=== PATIENT | female | born 1990 | race Caucasian/White ===

== ENCOUNTER 2021-04-25 17:22 | Emergency (ER) | payer OTHER, SELFPAY ==
[2021-04-25 17:33] VITALS: BP 127/71; PULSE 67; RESP 16; TEMP 36.4; O2SAT 99; BMI 29.5
--- NOTE | 2021-04-25 17:49 | DI.US.S_ITS ---
PROCEDURE: US PELVIC COMPLETE INDICATIONS: miscarriage TECHNIQUE: Real-time scanning was performed of the pelvic organs, with image documentation. Additional endovaginal scanning was necessary due to incomplete visualization of the adnexal and endometrial structures by transabdominal scanning. COMPARISON: None. FINDINGS: Uterus: Uterus is anteverted and measures approximately 11.1 x 5.6 x 6.9 cm. The endometrium measures 1.8 cm in combined thickness. There are heterogeneous hypoechoic filling defects within the lower uterine segment. No associated internal vascularity on color Doppler interrogation. Ovaries: The ovaries were not visualized. Other: No pathologic free abdominal or pelvic fluid. IMPRESSION: 1. Heterogeneous filling defects within the uterus predominantly in the lower uterine segment. Although no internal vascularity is identified, the findings are suggestive of retained products of conception. Dictated by: Yury Ascencio M.D. on 04/25/2021 at 18:47 Approved by: Yury Ascencio M.D. on 04/25/2021 at 18:51
[2021-04-25 19:33] LABS: Appearance Urine UA CLEAR; Bilirubin Urine UA NEGATIVE (NEGATIVE); Color Urine UA YELLOW; Glucose Urine UA NEGATIVE (Negative); Ketones Urine UA NEGATIVE (NEGATIVE); Leukocyte Esterase Urine UA TRACE (NEGATIVE); Nitrite Urine UA NEGATIVE (Negative); Occult Blood Urine UA 3+ (Negative); Protein Urine UA NEGATIVE (Negative); Specific Gravity Urine UA 1.015 (1.000-1.035); Urobilinogen Urine UA 0.2 E.U./dL (0.2)
[2021-04-25 20:02] LABS: Bacteria Urine Few (2-10); Culture Indicated Urine Specimen Cultured; RBC Urine 30-100/HPF (0-5/HPF); WBC Urine 5-10/HPF (0-5/HPF); pH Urine UA 5.5 (4.5-8.0)
[2021-04-25 21:00] VITALS: BP 117/55; PULSE 79; RESP 17; O2SAT 99
--- NOTE | 2021-04-25 21:07 | ED_ITS ---
HPI - General Chief complaint: Vaginal Bleeding Stated complaint: miscarriage last night, not passing much blood Time Seen by Provider: 04/25/21 17:57 Source: patient Mode of arrival: Ambulatory History of Present Illness HPI Narrative: 31-year-old female nonsmoker is a at 16 weeks that presents with very minimal spotting if any after a likely complete miscarriage last night. She had a normal ultrasound 2 weeks ago and yesterday started having some spotting. She called her OB doctor down in [place] who encouraged pelvic rest. Over the course of the night the patient had a rather sudden onset and impressive, quick passage of a completely intact fetus in a sac with very minimal ongoing symptoms. She presents today for evaluation. She is not dizzy nor weak or lightheaded. She denies any fever or chills. She has no chest pain or shortness of breath. Related Data Home Medications Medication Instructions Recorded Confirmed sertraline 50 mg tablet 50 mg PO DAILY 04/25/21 04/25/21 ziprasidone HCl 20 mg capsule 20 mg PO BID 04/25/21 04/25/21 (Del) Allergies Allergy/AdvReac Type Severity Reaction Status Date / Time Penicillins Allergy Hives Verified 04/25/21 17:42 Review of Systems Review of Systems Narrative: GENERAL: Denies chills, fatigue, malaise, fever, sweats. HEENT: Denies sinus pain, ear pain, sore throat, difficulty swallowing, dizziness. RESPIRATORY: Denies dyspnea, cough, wheezing, hemoptysis, sputum. CARDIOVASCULAR: Denies chest pain, palpitations, orthopnea, edema, GASTROINTESTINAL: Denies nausea, vomiting, abdominal pain, diarrhea, constipation, melena. : See HPI MUSCULOSKELETAL: denies weakness, joint pain, or bony pain SKIN: Denies rash, skin lesions, or other NEUROLOGIC: Denies weakness, headache, numbness, change in speech, confusion, seizures, incoordination. PSYCHIATRIC: No concerning psychosocial issues. 12 point review of systems is negative except for those stated above Exam Narrative Exam Narrative: GENERAL: [31 year old patient appears stated age. Well-developed patient, in mild distress. HEAD: Atraumatic. Normocephalic. EYES: Pupils equal round and reactive. Extraocular motions intact. No scleral icterus. No injection or drainage. ENT: Nose without bleeding, purulent drainage. Throat without erythema, tonsillar hypertrophy or exudate. Airway patent. NECK: Trachea midline. Non tender CARDIOVASCULAR: Regular rate and rhythm without murmurs, gallops, or rubs. RESPIRATORY: Clear to auscultation. Breath sounds equal bilaterally. No wheezes, rales, or rhonchi. GASTROINTESTINAL: Abdomen soft, non-tender, nondistended. EXTREMITIES: No edema or joint tenderness. BACK: Nontender without deformity or crepitance. No flank tenderness. NEURO: AOx3. SKIN: No rash or erythema of visible areas Initial Vital Signs Initial Vital Signs: Vital Signs Temperature 97.6 F 04/25/21 17:33 Pulse Rate 67 04/25/21 17:33 Respiratory Rate 16 04/25/21 17:33 Blood Pressure 127/71 04/25/21 17:33 Pulse Oximetry 99 04/25/21 17:33 Course Orders Ordered: ED Orders 04/25/21 17:43 Complete Blood Count AUTO DIFF Stat Comprehensive Metabolic Panel Stat HCG Quantitative /Beta subunit Stat 04/25/21 17:49 US pelvic complete Stat 04/25/21 17:58 ABO RH Type Stat 04/25/21 19:04 Urinalysis and Microscopic Stat Urine Culture Stat Consultations Consultation #1: Discussed with on-call OB, given report of complete passage of fetus and sac, very minimal residual on ultrasound there is no indication for medications such as me the prostate all or side attack. Encouraged close follow-up and return precautions Vital Signs Vital signs: Vital Signs - 8 hr 04/25/21 17:33 Temperature 97.6 F Pulse Rate 67 Respiratory Rate 16 Blood Pressure 127/71 Pulse Oximetry 99 MDM - OB/Uterine Contractions Lab Data Result diagrams: 04/25/21 21:15 04/25/21 21:15 Labs: Lab Results 04/25/21 04/25/21 04/25/21 Range/Units 19:04 21:15 21:15 WBC 8.0 (4.5-11.0) X10^3/uL RBC 4.82 (4.0-5.2) X10^6/uL Hgb 12.0 (12.0-16.0) g/dL Hct 36.1 (36-46) % MCV 75.0 L (80-100) fL MCH 24.8 L (26-34) PG MCHC 33.1 (30-36) % RDW 15.3 H (11.6-14.8) % Plt Count 280 (150-400) X10^3/uL Neut % (Auto) 70.3 (50-75) % Lymph % (Auto) 20.5 L (25-40) % Randolph % (Auto) 5.5 (3-14) % Eos % (Auto) 2.0 (2-4) % Baso % (Auto) 1.7 (0-2) % Neut # (Auto) 5600 (1557-5362) /uL Lymph # (Auto) 1600 (6634-7419) /uL Randolph # (Auto) 400 (0-900) /uL Eos # (Auto) 200 (0-450) /uL Baso # (Auto) 100 (0-100) /uL Sodium 139 (137-145) mmol/L Potassium 3.6 (3.4-5.1) mmol/L Chloride 104 (98-107) mmol/L Carbon Dioxide 24 (22-32) mmol/L BUN 11 (7-17) mg/dL Creatinine 0.62 (0.52-1.04) mg/dL Estimated GFR > 60.0 (>60) mL/min BUN/Creatinine Ratio 17.7 (6-22) Glucose 101 H (70-100) mg/dL Calcium 9.6 (8.4-10.2) mg/dL Total Bilirubin 0.4 (0.2-1.3) mg/dL AST 24 (14-36) IU/L ALT 14 (<35) IU/L Alkaline Phosphatase 88 (38-126) U/L Total Protein 7.4 (6.3-8.2) g/dL Albumin 4.4 (3.5-5.0) g/dL Globulin 3.0 (1.7-4.1) g/dL Albumin/Globulin Ratio 1.5 (1.0-2.8) HCG, Quant 210.7 mIU/mL Urine Color Yellow Urine Appearance Clear Urine pH 5.5 (4.5-8.0) Ur Specific [place] 1.015 (1.000-1.035) Urine Protein Negative (Negative) Urine Glucose (UA) Negative (Negative) g/dL Urine Ketones Negative (NEGATIVE) Urine Occult Blood 3+ H (Negative) Urine Nitrate Negative (Negative) Urine Bilirubin Negative (NEGATIVE) Urine Urobilinogen 0.2 (0.2) E.U./dL Ur Leukocyte Esterase Trace H (NEGATIVE) Urine RBC 30-100/hpf H (0-5/HPF) Urine WBC 5-10/hpf H (0-5/HPF) Urine Bacteria Few (2-10) H (None) Ur Culture Indicated? Specimen cultured Blood Type 04/25/21 Range/Units 21:15 WBC (4.5-11.0) X10^3/uL RBC (4.0-5.2) X10^6/uL Hgb (12.0-16.0) g/dL Hct (36-46) % MCV (80-100) fL MCH (26-34) PG MCHC (30-36) % RDW (11.6-14.8) % Plt Count (150-400) X10^3/uL Neut % (Auto) (50-75) % Lymph % (Auto) (25-40) % Randolph % (Auto) (3-14) % Eos % (Auto) (2-4) % Baso % (Auto) (0-2) % Neut # (Auto) (3169-0252) /uL Lymph # (Auto) (0993-2587) /uL Randolph # (Auto) (0-900) /uL Eos # (Auto) (0-450) /uL Baso # (Auto) (0-100) /uL Sodium (137-145) mmol/L Potassium (3.4-5.1) mmol/L Chloride (98-107) mmol/L Carbon Dioxide (22-32) mmol/L BUN (7-17) mg/dL Creatinine (0.52-1.04) mg/dL Estimated GFR (>60) mL/min BUN/Creatinine Ratio (6-22) Glucose (70-100) mg/dL Calcium (8.4-10.2) mg/dL Total Bilirubin (0.2-1.3) mg/dL AST (14-36) IU/L ALT (<35) IU/L Alkaline Phosphatase (38-126) U/L Total Protein (6.3-8.2) g/dL Albumin (3.5-5.0) g/dL Globulin (1.7-4.1) g/dL Albumin/Globulin Ratio (1.0-2.8) HCG, Quant mIU/mL Urine Color Urine Appearance Urine pH (4.5-8.0) Ur Specific [place] (1.000-1.035) Urine Protein (Negative) Urine Glucose (UA) (Negative) g/dL Urine Ketones (NEGATIVE) Urine Occult Blood (Negative) Urine Nitrate (Negative) Urine Bilirubin (NEGATIVE) Urine Urobilinogen (0.2) E.U./dL Ur Leukocyte Esterase (NEGATIVE) Urine RBC (0-5/HPF) Urine WBC (0-5/HPF) Urine Bacteria (None) Ur Culture Indicated? Blood Type O Positive Urine Dip Bedside Urine Glucose Negative Bedside Urine Bilirubin - Negative Bedside Urine Ketone - Negative Urine Specific [place] 1.025 Bedside Urine Occult Blood +++ Bedside Urine pH 6.0 Bedside Urine Protein - Negative Bedside Urine Urobilinogen 0.2 Bedside Urine Nitrite - Negative Bedside Urine Leukocytes - Negative Esterase Discharge Plan Departure Patient Disposition: Home Clinical Impression: Complete miscarriage Instructions: Miscarriage Activity Restrictions/Additional Instructions: *You have been diagnosed with [nearly complete miscarriage with minimal retained products. *What to do: *Please continue to take your regular medications as directed. [ ] New medication prescriptions sent to your pharmacy: [ ] [ ] New medication written as a paper prescription [x ] No new medications given *Please follow up with your OB provider in 2-3 days, call for an appointment. Let them know you were seen in the Emergency Department and that we ask that you be seen in follow up. We will electronically transmit a record of today's note if your PCP is in our system *Return to Emergency Department if you should have any new, worsening or concerning symptoms, such as [fever greater than 101 F, shaking chills, worsening pain, persistent vomiting bleeding through more than 1 pad per hour, or other bothersome symptoms Prescriptions: No Action ziprasidone HCl [Geodon] 20 mg Capsule 20 mg PO BID 0RF Rx Instructions: give with food (meal/snack) sertraline 50 mg Tablet 50 mg PO DAILY 0RF
[2021-04-25 21:33] LABS: Add Manual Diff / Slide Review NO; Basophils Absolute Auto 100 /uL (0-100); Basophils Percent Auto 1.7 % (0-2); Eosinophils Absolute Auto 200 /uL (0-450); Hematocrit 36.1 % (36-46); Lymphocytes Absolute Auto 1600 /uL (1100-4500); Lymphocytes Percent Auto 20.5 % (25-40); Mean Corpuscular HGB Conc 33.1 % (30-36); Mean Corpuscular Hemoglobin 24.8 PG (26-34); Monocytes Absolute Auto 400 /uL (0-900); Monocytes Percent Auto 5.5 % (3-14); Neutrophils Absolute Auto 5600 /uL (1500-7000); Neutrophils Percent Auto 70.3 % (50-75); Platelet Count 280 X10^3/uL (150-400); Red Blood Cell Count 4.82 X10^6/uL (4.0-5.2); Red Cell Distribution Width 15.3 % (11.6-14.8)
[2021-04-25 21:42] VITALS: BP 118/56; PULSE 82; RESP 17; O2SAT 100
[2021-04-25 21:46] LABS: Alanine Aminotransferase 14 IU/L (<35); Albumin 4.4 g/dL (3.5-5.0); Albumin Globulin Ratio 1.5 (1.0-2.8); Alkaline Phosphatase 88 U/L (38-126); Aspartate Aminotransferase 24 IU/L (14-36); BUN Creatinine Ratio 17.7 (6-22); Bilirubin Total 0.4 mg/dL (0.2-1.3); Blood Urea Nitrogen 11 mg/dL (7-17); Calcium 9.6 mg/dL (8.4-10.2); Carbon Dioxide 24 mmol/L (22-32); Chloride 104 mmol/L (98-107); Estimated Glomerular Filt Rate > 60.0 mL/min (>60); Glucose 101 mg/dL (70-100); HEMOLYSIS < 15 (0-50); Potassium 3.6 mmol/L (3.4-5.1); Sodium 139 mmol/L (137-145); Total Protein 7.4 g/dL (6.3-8.2)
[2021-04-25 22:03] LABS: HCG Quantitative /Beta subunit 210.7 mIU/mL
== END 2021-04-25 22:04 | disposition home or self-care (01) ==
PROVIDERS: Emergency Medicine; Emergency Provider Emergency Medicine
DX: O03.4 Incomplete spontaneous abortion without complication (principal)
CPT/HCPCS: 76830; 76856; 80053; 81001; 81003; 84702; 85025; 86900; 86901; 87086; 99282; 99284

== ENCOUNTER 2022-10-19 23:34 | Emergency (ER) | payer OTHER, SELFPAY ==
[2022-10-19 23:52] VITALS: BP 128/75; PULSE 94; RESP 18; O2SAT 95; BMI 29.5
--- NOTE | 2022-10-20 01:13 | ED.PSYCH ---
HPI - Psych General Chief Complaint: Psychiatric Symptoms Stated Complaint: mental health eval Time Seen by Provider: 10/20/22 01:01 Source: patient Mode of arrival: Ambulatory History of Present Illness HPI Narrative: Patient is a 32-year-old female history of bipolar and depression presenting today with depression. She reports that she is about 4 months she went off of all of her antipsychotic medications and antidepressants while she was . She is not been put back on them. Over last couple months she has had increasing frequency and thoughts of self-harm. She is not acted on it. She was previously on sertraline and Geodon, she is an appointment with her PCP this week. She is here with a supportive she reports that they are going to therapy they previously were in it seems to help them and something that they are both interested in. Related Data Home Medications Medication Instructions Recorded Confirmed sertraline 50 mg tablet 50 mg PO DAILY 04/25/21 04/25/21 ziprasidone HCl 20 mg capsule 20 mg PO BID 04/25/21 04/25/21 (Geodon) Allergies Allergy/AdvReac Type Severity Reaction Status Date / Time Penicillins Allergy Hives Verified 04/25/21 17:42 Review of Systems Review of Systems ROS Unobtainable: All systems reviewed & are unremarkable except as noted in HPI and below Patient History Social History Smoking Status: Never smoker Smoking Status: Never smoker alcohol intake frequency: other Substance Use Type: does not use Exam Initial Vital Signs Initial Vital Signs: Vital Signs Pulse Rate 94 H 10/19/22 23:52 Respiratory Rate 18 10/19/22 23:52 Blood Pressure 128/75 10/19/22 23:52 Pulse Oximetry 95 10/19/22 23:52 Oxygen Delivery Method Room Air 10/19/22 23:52 GENERAL: Well-appearing, well-nourished and in no acute distress. Well-dressed non disheveled CARDIOVASCULAR: peripheral pulses in tact, cap refill <2 sec RESPIRATORY: No respiratory distress, speaks in full sentences without difficulty EXTREMITIES: Normal range of motion, no clubbing or edema. Neurovascularly intact NEUROLOGICAL: Cranial nerves II through XII grossly intact. Normal gait and speech. SKIN: Warm, dry, no petechiae, no rashes or lesions. PSYCH: Good insight appears clean Course Vital Signs Vital signs: Vital Signs - 8 hr 10/19/22 23:52 10/20/22 01:23 Pulse Rate 94 H 75 Respiratory Rate 18 18 Blood Pressure 128/75 107/56 L Pulse Oximetry 95 96 Oxygen Delivery Method Room Air Room Air MDM - Psych MDM Narrative Medical decision making narrative: Patient 82-year-old female history of bipolar depression presenting today with increasing thoughts of suicide. Some like she will truly act on it but is having worsening thoughts which concern her. She is an appointment in 5 days to establish care with someone new. Possible this is also depression. She denies any other symptoms she does not want placement she is not gravely disabled. Discharge Plan Departure Patient Disposition: Home Clinical Impression: Depression Instructions: Depression Activity Restrictions/Additional Instructions: *You have been diagnosed with depression *What to do: Possible depression. I am happy that you have an appointment with your PCP this week. I think getting back on some medication will likely help you. If you are feeling suicidal or having suicidal thoughts: Call: Suicide Hotline: 267 Visit: www.[employer].org Text: 564348 *Continue to take medications as directed *Follow up with your primary care provider in 2-3 days or call [phone] *Return to ER if you should have increasing thoughts of self harm, intrusive thoughts or any new, worsening or concerning symptoms Prescriptions: No Action ziprasidone HCl [Geodon] 20 mg Capsule 20 mg PO BID Rx Instructions: give with food (meal/snack) sertraline 50 mg Tablet 50 mg PO DAILY Stand Alone Forms: Patient Portal/API
[2022-10-20 01:23] VITALS: BP 107/56; PULSE 75; RESP 18; O2SAT 96
== END 2022-10-20 01:23 | disposition home or self-care (01) ==
PROVIDERS: Emergency Provider Emergency Medicine
DX: F32.A Depression, unspecified (principal)
CPT/HCPCS: 99281